=== PATIENT | female | born 1960 ===

== ENCOUNTER 2017-01-13 09:45 | Emergency (ER) | payer MEDICAID, OTHER ==
[2017-01-13 09:50] VITALS: BMI 22.9
--- NOTE | 2017-01-13 10:00 | ED PDOC ---
Arrival/HPI - General Chief Complaint: Back Pain Time Seen by Provider: 01/13/17 09:50 Historian: Patient - History of Present Illness Time/Duration: Other (3 days) Symptom Onset: Gradual Symptom Course: Worsening Quality: Aching Severity Level: Moderate Activities at Onset: Rest Associated Symptoms (Text): 01/13/17 09:58 Patient complains of right lower back pain with radiation into her right lower extremity for the last 3 days which has been worsening. No weakness. No paresthesias. No abdominal pain nausea vomiting diarrhea constipation or GI bleed. No genitourinary symptoms. No injury or trauma. There is a history of low back pain. She had an MRI of her lumbar spine in February 2016 which was unrevealing. Past Medical History - Pulmonary Hx Asthma: Yes - Musculoskeletal/Rheumatological Hx Back Pain: Yes - Psychiatric Hx Bipolar Disorder: Yes Hx Substance Use: No Family/Social History - Physician Review Nursing Documentation Reviewed: Yes Family/Social History: Unknown Family HX Smoking Status: Never Smoked Hx Alcohol Use: No Hx Substance Use: No Allergies/Home Meds Allergies/Adverse Reactions: Allergies No Known Allergies Allergy (Verified 01/13/17 10:02) Home Medications: Home Meds Medication Instructions Recorded Confirmed Gabapentin [Neurontin] 100 mg PO TID 01/28/16 01/13/17 [place] Carbonate [[place] 600 mg PO BID 01/28/16 01/13/17 Carbonate 300MG] Review of Systems - Physician Review All systems were reviewed & negative as marked: Yes - Review of Systems Respiratory: Normal Cardiovascular: Normal Gastrointestinal: Normal Genitourinary Female: Normal Physical Exam Vital Signs Temp Pulse Resp BP Pulse Ox 01/13/17 09:55 98.4 F 80 19 151/72 H 98 Temperature: Afebrile Blood Pressure: Hypertensive Pulse: Regular Respiratory Rate: Normal Appearance: Positive for: Well-Appearing, Non-Toxic, Uncomfortable Pain Distress: Mild Mental Status: Positive for: Alert and Oriented X 3 - Systems Exam Head: Present: Atraumatic, Normocephalic Neck: Present: Normal Range of Motion Respiratory/Chest: Present: Clear to Auscultation, Good Air Exchange. No: Respiratory Distress, Accessory Muscle Use Cardiovascular: Present: Regular Rate and Rhythm, Normal S1, S2. No: Murmurs Abdomen: Present: Normal Bowel Sounds. No: Tenderness, Distention, Peritoneal Signs Back: Present: Normal Inspection, Paraspinal Tenderness (Right lumbar paraspinous tenderness with no spasm), Pain with Leg Raise. No: CVA Tenderness , Midline Tenderness Upper Extremity: Present: Normal Inspection. No: Cyanosis, Edema Lower Extremity: Present: Normal Inspection. No: Edema Neurological: Present: GCS=15, CN II-XII Intact, Speech Normal, Motor Func Grossly Intact, Normal Cerebellar Funct, Gait Normal Skin: Present: Warm, Dry, Normal Color. No: Rashes Psychiatric: Present: Alert, Oriented x 3, Normal Insight, Normal Concentration Medical Decision Making ED Course and Treatment: 01/13/17 10:25 No imaging is indicated at this time. Patient will be discharged home to follow up with PMD. Follow-up in the ER as needed. - Medication Orders Current Medication Orders: Discontinued Medications Ketorolac Tromethamine (Toradol) 60 mg IM ONCE ONE Stop: 01/13/17 09:57 Last Admin: 01/13/17 10:08 Dose: 60 mg Disposition/Present on Arrival - Present on Arrival Any Indicators Present on Arrival: No History of DVT/PE: No History of Uncontrolled Diabetes: No Urinary Catheter: No History of Decub. Ulcer: No History Surgical Site Infection Following: None - Disposition Have Diagnosis and Disposition been Completed?: Yes Diagnosis: Low back pain, Sciatica of right side Disposition: HOME/ ROUTINE Disposition Time: 10:25 Patient Plan: Discharge Condition: GOOD Discharge Instructions (ExitCare): Sciatica (ED), Lumbar Radiculopathy (ED), Acute Low Back Pain (ED) Prescriptions: Cyclobenzaprine [Flexeril] 5 mg PO Q8 #15 tab Naproxen [Naprosyn] 500 mg PO BID #14 tab Referrals: Venancio De La Vega MD [Primary Care Provider] - Follow up with primary
[2017-01-13 10:06] VITALS: TEMP 98.4; O2SAT 98
[2017-01-13 10:36] VITALS: BP 149/75; PULSE 78; RESP 18
== END 2017-01-13 10:36 | disposition home or self-care (01) ==
LOC: ED 09:45
DX: M54.41 Lumbago with sciatica, right side (principal)
CPT/HCPCS: 96372; 99285; J1885